=== PATIENT | male | born 1935 | race Two or more races ===

== ENCOUNTER 2019-01-11 10:26 | Day surgery (SDC) | payer MEDICARE, MEDICAID ==
[~2019-01-11] VITALS: Ht 175.3 cm; Wt 80.7 kg
[2019-01-11] VITALS (11 sets, daily range): BP systolic 133–151; BP diastolic 72–89
[~2019-01-11 10:26] MED LIST: ceFAZolin sod 1 GM in NS 55 ML IVPB ONE
[2019-01-11] MEDS ORDERED: FLOMAX0.4 MG ORAL (11:25)
[2019-01-11] MEDS ORDERED: ASPIRIN81 MG ORAL (11:25)
[2019-01-11] MEDS ORDERED: fentaNYL 100 mcg/2 mL IV ONE (12:54)
[2019-01-11] MEDS ORDERED: Ketorolac 30mg Inj ONE ×2 (12:57→15:24)
--- NOTE | 2019-01-11 13:12 | Pre-Procedure Note/Attestation ---
Pre-Procedure Note/Attestation Complete Prior to Procedure Planned Procedure: not applicable Procedure Narrative: TURBT with Mitomicin Indications for Procedure Pre-Operative Diagnosis: bladder tumor Attestation I attest that I discussed the nature of the procedure; its benefits; risks and complications; and alternatives (and the risks and benefits of such alternatives ), prior to the procedure, with the patient (or the patient's legal direct customer service representative). I attest that, if there was a reasonable possibility of needing a blood transfusion, the patient (or the patient's legal direct customer service representative) was given the [facility] standardized written summary, pursuant to the Bartolome Cook Blood Safety Act ([place] Health and Safety Code # 1645, as amended). I attest that I re-evaluated the patient just prior to the surgery and that there has been no change in the patient's H&P, except as documented below: Kj Clemens MD January 11, 2019 13:12
[2019-01-11] MEDS ORDERED: Iothalamate Meglumine 60% 30ML INJ ONE (13:15)
[2019-01-11] MEDS ORDERED: cefOXitin 1gm Inj ONE (13:16)
[2019-01-11] MEDS ORDERED: Sterile Water Irrig 1000ml IRRIG ONE (13:40)
[2019-01-11] MEDS ORDERED: LR 1000ml ONE (13:40)
[2019-01-11] MEDS ORDERED: Propofol 200mg/20ml IV ONE (13:40)
[2019-01-11] MEDS ORDERED: NS Irrig 1000ml ONE (13:40)
[2019-01-11] MEDS ORDERED: LR 1000ml 1,000 ML IVLG SCH (14:20)
--- NOTE | 2019-01-11 14:20 | Anethesia Preoperative Eval ---
Anesthesia Pre-op PMH/ROS General Date of Evaluation: January 11, 2019 Time of Evaluation: 13:32 Anesthesiologist: Salomon ASA Score: ASA 3 Mallampati Score Class I : Soft palate, uvula, fauces, pillars visible Class II: Soft palate, uvula, fauces visible Class III: Soft palate, base of uvula visible Class IV: Only hard plate visible Mallampati Classification: Class II Surgeon: Sarath Diagnosis: Bladder tumor Surgical Procedure: Cysto Resection of bladder tumor Anesthesia History: none Social History: current smoker Family History: no anesthesia problems Allergies: Coded Allergies: No Known Allergies (Unverified , 01/10/19) Medications: see eMAR Patient NPO?: Yes Past Medical History Cardiovascular: Reports: HTN; Denies: CAD, [place], valve dz, arrhythmia, other Pulmonary: Reports: COPD; Denies: asthma, LETY, other Gastrointestinal/Genitourinary: Reports: GERD, CRI, other - BPH hematuria Neurologic/Psychiatric: Reports: depression/anxiety; Denies: dementia, CVA, TIA, other Endocrine: Reports: DM, hypothyroidism; Denies: steroids, other HEENT: Reports: cataract (L), cataract (R); Denies: glaucoma, [place] (L), [place] (R), other Hematology/Immune: Denies: anemia, DVT, bleeding disorder, other Musculoskeletal/Integumentary: Reports: OA PMH Narrative: as above PSxH Narrative: Hernia repair Anesthesia Pre-op Phys. Exam Physician Exam Last Vital Signs Date Time Temp Pulse Resp B/P (MAP) Pulse Ox O2 Delivery O2 Flow Rate FiO2 01/11/19 11:33 Room Air 01/11/19 11:16 96.9 62 18 148/77 95 Constitutional: NAD Neurologic: CN 2-12 intact Cardiovascular: no M/R/G Respiratory: other - some wheezing bilaterally Gastrointestinal: S/NT/ND Airway Exam Mallampati Score: Class II Neck: stiff ROM: limited Teeth: missing Dentures: no upper, no lower Anesthesia Pre-op A/P Labs see chart Studies Pre-op Studies: EKG - SR Risk Assessment & Plan Assessment: ASA 3 Plan: GA with LMA Status Change Before Surgery: No Pre-Antibiotics Drug: CEfoxitin 1gr Given Within 1 Hr of Incision: Yes Time Given: 14:15 Scotty Ventura MD January 11, 2019 14:20
[2019-01-11] MEDS ORDERED: DiphenhydrAMINE 50mg/ml Inj IVP PRN (14:30)
[2019-01-11] MEDS ORDERED: Hydromorphone 0.5mg/0.5ml inj IVP PRN (14:30)
[2019-01-11] MEDS ORDERED: Ketorolac 30mg Inj IV PRN (14:30)
--- NOTE | 2019-01-11 14:40 | Immediate Post-Op Evaluation ---
Immediate Post-Op Evalulation Immediate Post-Op Evalulation Procedure: Cysto Resection of bladder tumor Date of Evaluation: January 11, 2019 Time of Evaluation: 14:39 IV Fluids: 800 Blood Products: none Estimated Blood Loss: 50 Urinary Output: N/A Blood Pressure Systolic: 135 Blood Pressure Diastolic: 76 Pulse Rate: 64 Respiratory Rate: 20 O2 Sat by Pulse Oximetry: 99 Temperature (Fahrenheit): 97.5 Pain Score (1-10): 1 Nausea: No Vomiting: No Complications none Patient Status: reacts, patent, none Hydration Status: adequate Scotty Ventura MD January 11, 2019 14:40
--- NOTE | 2019-01-11 14:52 | Brief Operative Note ---
Immediate Post Operative Note Operative Note Pre-op Diagnosis: bladder tumor Procedure: TURBT RPG Post-op Diagnosis: same Post-op Diagnosis: same as pre-op Surgeon: Martin Clemens Anesthesia: general Specimen: yes Complications: none Condition: stable Fluids: 500 Estimated Blood Loss: minimal Implant(s) used?: No Kj Clemens MD January 11, 2019 14:52
[2019-01-11] MEDS ORDERED: Tylenol #3 tab (300mg/30mg) ORAL PRN (15:00)
[2019-01-11] MEDS ORDERED: D5 1/2NS 1,000 ML IV SCH (15:00)
[2019-01-11] MEDS ORDERED: HYDROmorphone 1mg/ml Carpuject SUBQ PRN (15:00)
[2019-01-11] MEDS ORDERED: HYDROcodone/Acetamin 5/325 tab ORAL PRN (15:00)
[2019-01-12 12:33] VITALS: BP 144/62
--- NOTE | 2019-01-12 12:33 | 48 Hour Post Anesthesia Eval ---
Post Anesthesia Evaluation Procedure: Cysto Resection of bladder tumor Date of Evaluation: January 11, 2019 Time of Evaluation: 15:40 Blood Pressure Systolic: 144 0: 62 Pulse Rate: 64 Respiratory Rate: 20 Temperature (Fahrenheit): 97.6 O2 Sat by Pulse Oximetry: 98 Airway: patent Nausea: No Vomiting: No Pain Intensity: 2 Hydration Status: adequate Cardiopulmonary Status: stable Mental Status/LOC: patient returned to baseline Follow-up Care/Observations: n/a Post-Anesthesia Complications: none Follow-up care needed: ready to discharge Scotty Ventura MD January 12, 2019 12:33
--- NOTE | 2019-01-13 00:30 | Operative Note - Dictated ---
DATE OF OPERATION: 01/11/2019 PREOPERATIVE DIAGNOSIS: Bladder cancer. POSTOPERATIVE DIAGNOSIS: Bladder cancer. OPERATION: Transurethral resection of the bladder tumor. OPERATED BY: Kj Clemens M.D. ANESTHESIA: General. 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 INDICATION FOR SURGERY: The patient was diagnosed with bladder cancer. Treatment options were explained in great length including all potential complications. He signed a consent. PROCEDURE IN DETAIL: He was brought to the operating room, placed in lithotomy position, and prepped and draped in a standard fashion. Under general anesthesia, cystoscope was introduced into the bladder followed by resectoscope. Multiple tumors were resected and sent for pathologic examination. The patient tolerated the procedure well . No evidence of complications. Kj Clemens M.D. DR: VALENTE JOB#: [id number] CC:
== END 2019-01-11 16:30 | disposition home or self-care (01) ==
LOC: SUR 10:26 → EDBD 10:26 → SUR 16:30
DX: C67.9 Malignant neoplasm of bladder, unspecified (principal); R31.9 Hematuria, unspecified; G47.00 Insomnia, unspecified; E78.5 Hyperlipidemia, unspecified; E11.21 Type 2 diabetes mellitus with diabetic nephropathy; E66.9 Obesity, unspecified; F50.00 Anorexia nervosa, unspecified; Z68.26 Body mass index [BMI] 26.0-26.9, adult; I12.9 Hypertensive chronic kidney disease with stage 1 through stage 4 chronic kidney disease, or unspecified chronic kidney disease; E11.22 Type 2 diabetes mellitus with diabetic chronic kidney disease; N18.9 Chronic kidney disease, unspecified; F32.9 Major depressive disorder, single episode, unspecified; F41.9 Anxiety disorder, unspecified; K21.9 Gastro-esophageal reflux disease without esophagitis; E03.9 Hypothyroidism, unspecified; M19.90 Unspecified osteoarthritis, unspecified site; J44.9 Chronic obstructive pulmonary disease, unspecified; F17.200 Nicotine dependence, unspecified, uncomplicated; R06.2 Wheezing
CPT/HCPCS: 52234; 82962; C1769; J0694; J1885; J2704; J3010; 94003; 94150

== ENCOUNTER 2019-07-12 07:14 | Day surgery (SDC) | payer MEDICARE, MEDICAID ==
[~2019-07-12] VITALS: Ht 167.6 cm; Wt 74.8 kg
[2019-07-12] VITALS (12 sets, daily range): BP systolic 143–194; BP diastolic 76–103
[~2019-07-12 07:14] MED LIST changes: +ASPIRIN81 MG ORAL; +FLOMAX0.4 MG ORAL
[2019-07-12] MEDS ORDERED: Propofol 1,000mg/ 100ml btl IV ONE (08:00)
[2019-07-12] MEDS ORDERED: PROSCAR5 MG ORAL (08:06)
[2019-07-12] MEDS ORDERED: FLOMAX0.4 MG ORAL (08:06)
[2019-07-12] MEDS ORDERED: Iothalamate Meglumine 60% 30ML INJ ONE (08:07)
[2019-07-12] MEDS ORDERED: NS Irrig 4000ml IRRIG ONE ×5 (08:12→09:43)
[2019-07-12] MEDS ORDERED: Sterile Water For Irrig 2000ml IRRIG ONE (08:13)
[2019-07-12] MEDS ORDERED: LR 1000ml 1,000 ML IVLG SCH (08:14)
[2019-07-12] MEDS ORDERED: Ketorolac 30mg Inj IV PRN ×2 (08:15)
[2019-07-12] MEDS ORDERED: Hydromorphone 0.5mg/0.5ml inj IVP PRN (08:15)
[2019-07-12] MEDS ORDERED: HYDROcodone/Acetamin 5/325 tab ORAL PRN ×2 (08:15→11:45)
[2019-07-12] MEDS ORDERED: Midazolam 2mg/2ml Inj IVP PRN (08:15)
[2019-07-12] MEDS ORDERED: Atropine Sulfate 0.4mg/ml inj IVP PRN (08:15)
[2019-07-12] MEDS ORDERED: LORazepam Inj 2mg/ml 1ml IV PRN (08:15)
[2019-07-12] MEDS ORDERED: oxyCODONE HCL/Acetaminophen 5/325mg ORAL PRN (08:15)
[2019-07-12] MEDS ORDERED: Acetaminophen (Non formulary) 100 ML IV ONE (08:15)
[2019-07-12] MEDS ORDERED: HYDROcodone/Acetamin 7.5/325 tab ORAL PRN (08:15)
[2019-07-12] MEDS ORDERED: fentaNYL 100 mcg/2 mL IV PRN (08:15)
[2019-07-12] MEDS ORDERED: Metoclopramide 10mg/2ml Inj IVP PRN (08:15)
[2019-07-12] MEDS ORDERED: Labetalol 5mg/ml 20ml vial IV PRN (08:15)
[2019-07-12] MEDS ORDERED: Meperidine 50mg/ml Inj(FOR RIGORS ONLY) IVP PRN (08:15)
[2019-07-12] MEDS ORDERED: DiphenhydrAMINE 50mg/ml Inj IVP PRN (08:15)
[2019-07-12] MEDS ORDERED: CIPROFLOXACIN500 M2 ORAL (08:22)
[2019-07-12] MEDS ORDERED: ACETAMINOPHEN-1 EAC1 ORAL (08:22)
[2019-07-12] MEDS ORDERED: Neostigmine 1mg/ml 10ml Inj ONE (08:30)
[2019-07-12] MEDS ORDERED: LR 1000ml ONE (08:30)
[2019-07-12] MEDS ORDERED: Sterile Water Irrig 1000ml IRRIG ONE (08:30)
[2019-07-12] MEDS ORDERED: Lidocaine 1% Plain 30 ml INJ ONE (08:30)
[2019-07-12] MEDS ORDERED: Rocuronium Bromide 50mg/5ml Inj IV ONE (08:30)
[2019-07-12] MEDS ORDERED: Glycopyrrolate 0.2mg/ml 1ml Vial ONE (08:30)
--- NOTE | 2019-07-12 08:33 | Anethesia Preoperative Eval ---
Anesthesia Pre-op PMH/ROS General Date of Evaluation: Jul 12, 2019 Time of Evaluation: 08:26 Anesthesiologist: Marty ASA Score: ASA 3 Mallampati Score Class I : Soft palate, uvula, fauces, pillars visible Class II: Soft palate, uvula, fauces visible Class III: Soft palate, base of uvula visible Class IV: Only hard plate visible Mallampati Classification: Class II Surgeon: Sarath Diagnosis: Abd Pain Surgical Procedure: TURBT Anesthesia History: none Social History: current smoker Family History: no anesthesia problems Allergies: Coded Allergies: No Known Allergies (Unverified , 01/10/19) Medications: see eMAR Patient NPO?: Yes Past Medical History Cardiovascular: Reports: HTN Pulmonary: Reports: COPD Gastrointestinal/Genitourinary: Reports: CRI, other - BPH Hematuria Neurologic/Psychiatric: Reports: depression/anxiety Endocrine: Reports: DM, hypothyroidism HEENT: Reports: cataract (L), cataract (R) PSxH Narrative: Appendectomy Anesthesia Pre-op Phys. Exam Physician Exam Vital Signs Date Time Temp Pulse Resp B/P (MAP) Pulse Ox O2 Delivery O2 Flow Rate FiO2 07/12/19 08:30 97.7 73 18 143/76 97 Room Air Constitutional: NAD Neurologic: CN 2-12 intact Cardiovascular: RRR Respiratory: CTA Gastrointestinal: S/NT/ND Airway Exam Mallampati Score: Class II MO: full ROM: limited Teeth: missing Dentures: upper, lower Anesthesia Pre-op A/P Risk Assessment & Plan Assessment: ASA 3 Plan: GA, SED, GlideScope Go Status Change Before Surgery: No Pre-Antibiotics Dru Grams Ancef IV Given Within 1 Hr of Incision: Yes Time Given: 08:56 Brian Ferguson MD Jul 12, 2019 08:33
[2019-07-12] MEDS ORDERED: Dexamethasone 4mg/ml vial ONE (08:38)
[2019-07-12] MEDS ORDERED: Lidocaine 1% MPF 10mg/ml 5ml ONE (08:38)
[2019-07-12] MEDS ORDERED: Sodium Chloride 10ml vial INJ ONE (08:38)
[2019-07-12] MEDS ORDERED: Midazolam 2mg/2ml Inj ONE (08:39)
[2019-07-12] MEDS ORDERED: fentaNYL 100 mcg/2 mL IV ONE (08:39)
--- NOTE | 2019-07-12 08:39 | Pre-Procedure Note/Attestation ---
Pre-Procedure Note/Attestation Complete Prior to Procedure Planned Procedure: not applicable Procedure Narrative: TURBT RPG Indications for Procedure Pre-Operative Diagnosis: bladder Cancer Attestation I attest that I discussed the nature of the procedure; its benefits; risks and complications; and alternatives (and the risks and benefits of such alternatives ), prior to the procedure, with the patient (or the patient's legal client relations representative). I attest that, if there was a reasonable possibility of needing a blood transfusion, the patient (or the patient's legal client relations representative) was given the [facility] standardized written summary, pursuant to the Bartolome [place] Blood Safety Act ([place] Health and Safety Code # 1645, as amended). I attest that I re-evaluated the patient just prior to the surgery and that there has been no change in the patient's H&P, except as documented below: Kj Clemens MD Jul 12, 2019 08:39
--- NOTE | 2019-07-12 09:45 | Immediate Post-Op Evaluation ---
Immediate Post-Op Evalulation Immediate Post-Op Evalulation Procedure: TURBT Date of Evaluation: Jul 12, 2019 Time of Evaluation: 10:17 IV Fluids: 800 LR Blood Products: 0 Estimated Blood Loss: 50 Urinary Output: 100 Blood Pressure Systolic: 191 Blood Pressure Diastolic: 103 Pulse Rate: 85 Respiratory Rate: 16 O2 Sat by Pulse Oximetry: 97 Temperature (Fahrenheit): 98.2 Pain Score (1-10): 2 Nausea: No Vomiting: No Complications 0 Patient Status: awake, reacts, patent, extubated, none Hydration Status: adequate Dru grams Ancef IV Given Within 1 Hr of Incision: Yes Time Given: 08:56 Brian Ferguson MD Jul 12, 2019 09:45
--- NOTE | 2019-07-12 09:51 | Brief Operative Note ---
Immediate Post Operative Note Operative Note Pre-op Diagnosis: bladder Cancer Procedure: TURBT RPG Post-op Diagnosis: same Post-op Diagnosis: same as pre-op Surgeon: Martin Clemens Anesthesia: general Specimen: yes Complications: none Condition: stable Fluids: 1000 Estimated Blood Loss: minimal Implant(s) used?: No Kj Clemens MD Jul 12, 2019 09:51
--- NOTE | 2019-07-12 10:05 | 48 Hour Post Anesthesia Eval ---
Post Anesthesia Evaluation Procedure: TURBT Date of Evaluation: Jul 12, 2019 Time of Evaluation: 12:23 Blood Pressure Systolic: 156 0: 81 Pulse Rate: 72 Respiratory Rate: 18 Temperature (Fahrenheit): 98.4 O2 Sat by Pulse Oximetry: 97 Airway: patent Nausea: No Vomiting: No Pain Intensity: 2 Hydration Status: adequate Cardiopulmonary Status: Stable Mental Status/LOC: patient returned to baseline Follow-up Care/Observations: 0 Post-Anesthesia Complications: 0 Follow-up care needed: ready to discharge Brian Ferguson MD Jul 12, 2019 10:05
[2019-07-12] MEDS ORDERED: D5 1/2NS 1,000 ML IV SCH (16:01)
[2019-07-12] MEDS ORDERED: HYDROmorphone 1mg/ml Carpuject SUBQ PRN (16:01)
[2019-07-12] MEDS ORDERED: Tylenol #3 tab (300mg/30mg) ORAL PRN (16:01)
--- NOTE | 2019-07-12 18:30 | Operative Note - Dictated ---
DATE OF OPERATION: 07/12/2019 PREOPERATIVE DIAGNOSIS: Bladder tumor. POSTOPERATIVE DIAGNOSIS: Bladder tumor. OPERATIONS: 1. Transurethral section of the very large right lateral wall bladder tumor. 2. Bilateral retrograde pyelograms. SWITCHBOARD MANAGER: Kj Clemens M.D. ANESTHESIA: General. FINDINGS: Large massive invasive tumor in the right lateral and anterior part of the bladder. INDICATIONS FOR SURGERY: The patient refused several times to do transurethral resection of the existing bladder tumor. Eventually she started to have gross hematuria. Reevaluation showed significant growth of the tumor most likely with muscle invasion. Treatment options were explained to the patient. As a first stage, we decided to do transurethral section of bladder tumor to make a final diagnosis and also stop the bleeding. The patient understood the above procedure and signed the consent. PROCEDURE IN DETAIL: She was brought to the operating room, placed in lithotomy position, and prepped and draped in standard fashion. Under general anesthesia, resectoscope was introduced. Tumor was visualized, it was further away from the ureteral orifice. Using the loop resectoscope with bipolar, tumor was resected as much as possible most likely, not 100% but the bulk of the tumor was removed and of the tumor was fulgurated. All the specimens were sent for pathologic examination. The patient tolerated procedure well. No evidence of complications. Kj Clemens M.D. DR: Brodie JOB#: [id number] CC:
== END 2019-07-12 13:25 | disposition home or self-care (01) ==
LOC: SUR 07:14
DX: D49.4 Neoplasm of unspecified behavior of bladder (principal); I10 Essential (primary) hypertension; J44.9 Chronic obstructive pulmonary disease, unspecified; F32.9 Major depressive disorder, single episode, unspecified; F41.9 Anxiety disorder, unspecified; E11.9 Type 2 diabetes mellitus without complications; E03.9 Hypothyroidism, unspecified; Z90.89 Acquired absence of other organs; F17.210 Nicotine dependence, cigarettes, uncomplicated
CPT/HCPCS: 52240; 82962; C1769; J0360; J0690; J1100; J2001; J2175; J2250; J2405; J2704; J2710; J3010; 94003; 94150